=== PATIENT | female | born 1995 | race Two or more races ===

== ENCOUNTER 2017-06-27 09:26 | Emergency (ER) | payer OTHER ==
[~2017-06-27] VITALS: Ht 157.5 cm; Wt 106.0 kg
[~2017-06-27 09:26] MED LIST: ACETAMINOPHEN PO; BACT800T OR; HYDROCODONE PO; PHENAZOPYRIDINE PO; ZITH250T PO; ZOLOFT PO
[2017-06-27] MEDS ORDERED: NAPR500T PO (10:15)
[2017-06-27] MEDS ORDERED: KETOROLAC 30 MG/ML VIAL (J1885) IV ONE (10:15)
[2017-06-27] MEDS ORDERED: VALI5TAB PO (10:16)
[2017-06-27] MEDS ORDERED: KETOROLAC 60 MG/2 ML VIAL (J1885) IM ONE (10:30)
[2017-06-27 11:56] VITALS: BP 142/81
== END 2017-06-27 11:57 | disposition home or self-care (01) ==
LOC: M ED 09:26
DX: M54.5 Low back pain (principal); J45.909 Unspecified asthma, uncomplicated; F41.9 Anxiety disorder, unspecified; F33.9 Major depressive disorder, recurrent, unspecified; Z88.5 Allergy status to narcotic agent; Z88.8 Allergy status to other drugs, medicaments and biological substances; Z87.891 Personal history of nicotine dependence
CPT/HCPCS: 96372; 96374; 99283; J1885; J3360

== ENCOUNTER 2017-09-17 07:33 | Emergency (ER) | payer OTHER | END 2017-09-17 08:40 | disposition home or self-care (01) | LOC: M ED 07:33 | DX: J20.9 Acute bronchitis, unspecified (principal); B34.9 Viral infection, unspecified; R51 Headache; I10 Essential (primary) hypertension; Z79.899 Other long term (current) drug therapy; Z88.5 Allergy status to narcotic agent; Z88.8 Allergy status to other drugs, medicaments and biological substances | CPT/HCPCS: 99282 ==

== ENCOUNTER → 2018-01-03 | Outpatient (REF) | payer OTHER ==
[2018-01-03 12:36] LABS: BASO # 0.1 10^3/uL (0.0-0.2); BASO % 0.8 % (0.0-1.0); EOS # 0.2 10^3/uL (0.0-0.50); EOS % 2.5 % (0.0-3.0); HEMATOCRIT 39.8 % (36.0-47.0); HEMOGLOBIN 12.8 g/dl (12.0-15.5); IMMATURE GRANULOCYTE % 0.3 % (0-3.0); LYMPH # 2.4 10^3/uL (1.5-6.5); LYMPH % 36.9 % (24.0-44.0); MEAN CORPUSCULAR HEMOGLOBIN 25.9 pg (27.0-33.0); MEAN CORPUSCULAR HGB CONC 32.2 g/dl (32.0-36.5); MEAN CORPUSCULAR VOLUME 80.4 fl (80.0-96.0); MONO # 0.5 10^3/uL (0.0-0.8); MONO % 8.5 % (0.0-5.0); NEUTROPHILS # 3.2 10^3/uL (1.8-7.7); PLATELET COUNT, AUTOMATED 358 10^3/uL (150-450); RED BLOOD COUNT 4.95 10^6/uL (4.00-5.40); RED CELL DISTRIBUTION WIDTH 14.5 % (11.5-14.5); WHITE BLOOD COUNT 6.4 10^3/uL (4.0-10.0)
[2018-01-03 13:09] LABS: ALBUMIN/GLOBULIN RATIO 1.18 (1.00-1.93); ALKALINE PHOSPHATASE 72 U/L (45-117); ALT/SGPT 35 U/L (12-78); ANION GAP 10 MEQ/L (8-16); AST/SGOT 13 U/L (7-37); BILIRUBIN,TOTAL 0.3 MG/DL (0.2-1.0); BLOOD UREA NITROGEN 10 MG/DL (7-18); CARBON DIOXIDE LEVEL 22 MEQ/L (21-32); CHLORIDE LEVEL 110 MEQ/L (98-107); CREATININE FOR GFR 0.63 MG/DL (0.55-1.30); GLOMERULAR FILTRATION RATE > 60.0 (>60); GLUCOSE, FASTING 96 MG/DL (70-100); POTASSIUM SERUM 4.4 MEQ/L (3.5-5.1); SODIUM LEVEL 142 MEQ/L (136-145); THYROID STIMULATING HORMONE 0.626 uIU/ML (0.358-3.740); TOTAL PROTEIN 7.4 GM/DL (6.4-8.2)
[2018-01-03 13:21] LABS: HEPATITIS C VIRUS ABY INDEX < 0.0 INDEX (<0.8)
[2018-01-03 13:23] LABS: HIV 1&2 SCREEN CENTAUR NEGATIVE (NEGATIVE)
== END ==
LOC: M SFHCPLAZ 08:16
DX: Z00.00 Encounter for general adult medical examination without abnormal findings (principal); Z11.59 Encounter for screening for other viral diseases; Z11.4 Encounter for screening for human immunodeficiency virus [HIV]
CPT/HCPCS: 84443

== ENCOUNTER → 2018-01-31 | Outpatient (REF) | payer OTHER ==
[2018-01-31 12:07] LABS: CHOLESTEROL LEVEL 202 MG/DL (<200); CHOLESTEROL RISK RATIO 4.926 (<5); HDL CHOLESTEROL 41 MG/DL (>40); NON-HDL-C 161 MG/DL; TRIGLYCERIDES LEVEL 165 MG/DL (<150)
== END ==
LOC: M SFHCPLAZ 08:42
DX: K76.0 Fatty (change of) liver, not elsewhere classified (principal)

== ENCOUNTER → 2018-03-11 | Outpatient (CLI) | payer OTHER ==
[2018-03-11 08:42] LABS: MALB URINE SIEMENS 15.7 MG/L; MAU/CREAT RATIO 8.6 MCG/MG (0.0-30.0)
[2018-03-16 15:09] LABS: ALDOS/RENIN RATIO 21.7 (0.0-30.0); ALDOSTERONE 7.6 ng/dL (0.0-30.0); RENIN ACTIVITY 0.351 ng/mL/hr (0.167-5.380)
== END ==
LOC: M RAD 06:23
DX: I10 Essential (primary) hypertension (principal)
CPT/HCPCS: 76775

== ENCOUNTER → 2018-03-31 | Outpatient (REF) | payer OTHER ==
[2018-03-31 10:55] LABS: BASO # 0.1 10^3/uL (0.0-0.2); BASO % 0.6 % (0.0-1.0); EOS # 0.1 10^3/uL (0.0-0.50); EOS % 0.9 % (0.0-3.0); HEMATOCRIT 35.4 % (36.0-47.0); HEMOGLOBIN 11.3 g/dl (12.0-15.5); IMMATURE GRANULOCYTE % 1.2 % (0-3.0); LYMPH # 4.3 10^3/uL (1.5-6.5); LYMPH % 45.8 % (24.0-44.0); MEAN CORPUSCULAR HEMOGLOBIN 24.9 pg (27.0-33.0); MEAN CORPUSCULAR HGB CONC 31.9 g/dl (32.0-36.5); MONO # 0.9 10^3/uL (0.0-0.8); NEUTROPHILS % 42.5 % (36.0-66.0); PLATELET COUNT, AUTOMATED 339 10^3/uL (150-450); RED BLOOD COUNT 4.54 10^6/uL (4.00-5.40); RED CELL DISTRIBUTION WIDTH 15.3 % (11.5-14.5); WHITE BLOOD COUNT 9.5 10^3/uL (4.0-10.0)
[2018-03-31 11:21] LABS: D-DIMER QUANT 286.7 ng/ml (<500)
[2018-03-31 11:24] LABS: ALBUMIN 3.3 GM/DL (3.2-5.2); ALBUMIN/GLOBULIN RATIO 0.94 (1.00-1.93); ALKALINE PHOSPHATASE 53 U/L (45-117); ALT/SGPT 39 U/L (12-78); ANION GAP 7 MEQ/L (8-16); AST/SGOT 14 U/L (7-37); BILIRUBIN,TOTAL 0.3 MG/DL (0.2-1.0); BLOOD UREA NITROGEN 11 MG/DL (7-18); CALCIUM LEVEL 8.3 MG/DL (8.5-10.1); CARBON DIOXIDE LEVEL 24 MEQ/L (21-32); CHLORIDE LEVEL 114 MEQ/L (98-107); CPK CREATINE PHOSPHOKINASE 34 U/L (26-192); CREATININE FOR GFR 0.64 MG/DL (0.55-1.30); GLOMERULAR FILTRATION RATE > 60.0 (>60); GLUCOSE, FASTING 88 MG/DL (70-100); POTASSIUM SERUM 3.7 MEQ/L (3.5-5.1); SODIUM LEVEL 145 MEQ/L (136-145); TOTAL PROTEIN 6.8 GM/DL (6.4-8.2); TROPONIN I < 0.02 NG/ML (< 0.10)
[2018-03-31 11:25] LABS: CK-MB VALUE MASS < 1.0 NG/ML (<3.6); MB/CK RELATIVE INDEX 2.94 (< OR =4)
== END ==
LOC: M SFHCPLAZ 09:56
DX: R07.9 Chest pain, unspecified (principal)

== ENCOUNTER → 2018-05-26 | Outpatient (REF) | payer OTHER ==
[2018-05-26 18:32] LABS: INR 0.97
[2018-05-26 18:33] LABS: PARTIAL THROMBOPLASTIN TIME 30.3 SECONDS (25.4-37.6)
== END ==
LOC: M SFHCPLAZ 15:00
DX: D50.0 Iron deficiency anemia secondary to blood loss (chronic) (principal)

== ENCOUNTER → 2018-07-18 | Outpatient (CLI) | payer OTHER | LOC: M SLEEP HO 12:16 | DX: R40.0 Somnolence (principal) | CPT/HCPCS: G0399 ==

== ENCOUNTER → 2018-08-06 | Outpatient (REF) | payer OTHER ==
[~2018-08-06] MED LIST changes: +FLON1SPR; +IBUP-1022 PO; +NAPR-49 PO; +PRED20TA PO; +PROAAER10 INH; +PROT1TAB2 PO; +SUCR1TA PO; +VALI5TAB PO; +ZOFR4TAB14 PO
[2018-08-06 12:14] LABS: HEMATOCRIT 38.2 % (36.0-47.0); HEMOGLOBIN 12.5 g/dl (12.0-15.5); MEAN CORPUSCULAR HEMOGLOBIN 27.4 pg (27.0-33.0); MEAN CORPUSCULAR HGB CONC 32.7 g/dl (32.0-36.5); MEAN CORPUSCULAR VOLUME 83.6 fl (80.0-96.0); PLATELET COUNT, AUTOMATED 330 10^3/uL (150-450); RED BLOOD COUNT 4.57 10^6/uL (4.00-5.40); WHITE BLOOD COUNT 7.1 10^3/uL (4.0-10.0)
[2018-08-06 12:44] LABS: PERCENT SATURATION 20.9 % (13.2-45.0)
== END ==
LOC: M SFHCPLAZ 10:31
PROVIDERS: ATTEND Physician Assistant
DX: D50.0 Iron deficiency anemia secondary to blood loss (chronic) (principal)

== ENCOUNTER → 2018-08-30 | Outpatient (CLI) | payer OTHER ==
[~2018-08-30] MED LIST changes: -NAPR-49 PO; +NAPR-50 PO
--- NOTE | 2018-08-30 13:15 | REP ---
MRI brain without contrast: History: Intractable migraine with aura. . Comparison study: May 11, 2013. Technique: Axial and sagittal imaging planes are utilized for T1 and T2-weighted scans. Sequences include spin-echo, fast spin echo, FLAIR, and diffusion weighted sequences. MRI findings: No bony calvarial lesion is seen. Craniocervical junction and upper cervical cord are normal in appearance. There is no MR evidence of significant paranasal sinus disease. No intraorbital abnormality is seen. The lateral, third, and fourth ventricles are normal in size and position. Majano-white differentiation pattern is intact above and below the tentorium. There is no evidence of intracranial hemorrhage. No mass, infarction, extra-axial fluid collection or midline shift is seen. No abnormal white matter lesion is seen. Impression: Negative noncontrast brain MRI study. No change from comparison study in 2012. Electronically Signed by Jeff Viveros MD 08/30/2018 01:07 P
== END ==
LOC: M RAD 11:50
PROVIDERS: ATTEND Physician Assistant
DX: G43.119 Migraine with aura, intractable, without status migrainosus (principal)

== ENCOUNTER → 2018-10-03 | Outpatient (CLI) | payer OTHER ==
--- NOTE | 2018-10-03 17:00 | REP ---
Cervical spine age views: Vertebral body heights, interspacing alignment are normal. The facets are normally aligned. Prevertebral soft tissues are normal. There is no listhesis on flexion or extension. The odontoid view is unremarkable. There is no bony foraminal encroachment. Impression: Negative cervical spine plain film study. Electronically Signed by Saad Garsia MD 10/03/2018 04:52 P
== END ==
LOC: M RAD 16:16
PROVIDERS: ATTEND Physician Assistant
DX: M54.2 Cervicalgia (principal)

== ENCOUNTER → 2018-10-14 | Outpatient (REF) | payer OTHER ==
[2018-10-14 13:01] LABS: BLOOD UREA NITROGEN 16 MG/DL (7-18); CALCIUM LEVEL 9.3 MG/DL (8.5-10.1); CARBON DIOXIDE LEVEL 23 MEQ/L (21-32); CHLORIDE LEVEL 105 MEQ/L (98-107); CREATININE FOR GFR 0.84 MG/DL (0.55-1.30); GLOMERULAR FILTRATION RATE > 60.0 (>60); GLUCOSE, FASTING 95 MG/DL (70-100); POTASSIUM SERUM 3.4 MEQ/L (3.5-5.1); SODIUM LEVEL 138 MEQ/L (136-145)
== END ==
LOC: M SFHCPLAZ 08:56
PROVIDERS: ATTEND Physician Assistant
DX: I10 Essential (primary) hypertension (principal)

== ENCOUNTER → 2018-10-31 | Outpatient (REF) | payer OTHER ==
[2018-10-31 15:54] LABS: C REACTIVE PROTEIN QUANTITATIV < 0.30 MG/DL (0.00-0.30); RHEUMATOID FACTOR QUANT < 10.0 IU/ML (<15.0)
== END ==
LOC: M LABDRAW1 12:21
PROVIDERS: ATTEND Physician Assistant
DX: M54.2 Cervicalgia (principal)

== ENCOUNTER → 2019-02-17 | Outpatient (REF) | payer OTHER ==
[~2019-02-17] MED LIST changes: +CHLO125TA; +CIPR-249 PO; +FERR32TA; +FLAG500T PO; +GABA600T4; -NAPR-50 PO; +NAPR-837 PO; +POTA1TAB23; +ZOFR4TAB16 PO
[2019-02-17 12:07] LABS: HEMATOCRIT 41.3 % (36.0-47.0); HEMOGLOBIN 14.3 g/dl (12.0-15.5); MEAN CORPUSCULAR HEMOGLOBIN 30.2 pg (27.0-33.0); MEAN CORPUSCULAR HGB CONC 34.6 g/dl (32.0-36.5); MEAN CORPUSCULAR VOLUME 87.1 fl (80.0-96.0); PLATELET COUNT, AUTOMATED 323 10^3/uL (150-450); RED BLOOD COUNT 4.74 10^6/uL (4.00-5.40); WHITE BLOOD COUNT 7.2 10^3/uL (4.0-10.0)
[2019-02-17 12:28] LABS: ALBUMIN 4.1 GM/DL (3.2-5.2); ALT/SGPT 191 U/L (12-78); BILIRUBIN,TOTAL 0.6 MG/DL (0.2-1.0); BLOOD UREA NITROGEN 16 MG/DL (7-18); CALCIUM LEVEL 8.9 MG/DL (8.5-10.1); CARBON DIOXIDE LEVEL 24 MEQ/L (21-32); CHLORIDE LEVEL 107 MEQ/L (98-107); CHOLESTEROL LEVEL 238 MG/DL (<200); CHOLESTEROL RISK RATIO 6.432 (<5); CREATININE FOR GFR 0.71 MG/DL (0.55-1.30); FERRITIN 177 NG/ML (8-252); GLOMERULAR FILTRATION RATE > 60.0 (>60); GLUCOSE, FASTING 103 MG/DL (70-100); HDL CHOLESTEROL 37 MG/DL (>40); IRON (FE) 197 UG/DL (50-170); LDL CHOLESTEROL 152 MG/DL (<100); NON-HDL-C 201 MG/DL; PERCENT SATURATION 62.9 % (13.2-45.0); POTASSIUM SERUM 3.5 MEQ/L (3.5-5.1); SODIUM LEVEL 140 MEQ/L (136-145); THYROID STIMULATING HORMONE 0.612 uIU/ML (0.358-3.740); TOTAL IRON BINDING CAPACITY 313 UG/DL (250-450); TOTAL PROTEIN 6.8 GM/DL (6.4-8.2); TRIGLYCERIDES LEVEL 244 MG/DL (<150)
[2019-02-17 13:32] LABS: HEMOGLOBIN A1c 6.2 %
[2019-02-17 13:41] LABS: MAU/CREAT RATIO 8.1 MCG/MG (0.0-30.0)
== END ==
LOC: M SFHCPLAZ 10:04
PROVIDERS: ATTEND Nurse Practitioner Adult Health
DX: Z00.00 Encounter for general adult medical examination without abnormal findings (principal); D50.0 Iron deficiency anemia secondary to blood loss (chronic); E78.5 Hyperlipidemia, unspecified; I10 Essential (primary) hypertension; Z83.3 Family history of diabetes mellitus

== ENCOUNTER 2019-03-31 23:59 | Emergency (ER) | payer OTHER ==
[~2019-03-31] VITALS: Ht 157.5 cm; Wt 114.2 kg
[~2019-03-31 23:59] MED LIST changes: -CHLO125TA; -CIPR-249 PO; -FERR32TA; -FLAG500T PO; -GABA600T4; -POTA1TAB23; -ZOFR4TAB16 PO
[2019-04-01] MEDS ORDERED: FERR32TA (00:07)
[2019-04-01] MEDS ORDERED: POTA1TAB23 (00:07)
[2019-04-01] MEDS ORDERED: CHLO125TA (00:07)
[2019-04-01] MEDS ORDERED: GABA600T4 (00:07)
[2019-04-01] MEDS ORDERED: METOCLOPRAMIDE 10 MG TAB PO ONE (02:15)
[2019-04-01] MEDS ORDERED: IBUPROFEN 600 MG TAB PO ONE (02:15)
[2019-04-01] MEDS ORDERED: NORCO, ANEXSIA 5/325MG TABLET (HYDROcodone/ACETAMINOPHEN) PO ONE (02:15)
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
[2019-04-01] MEDS ORDERED: IBUP-1022 PO (03:09)
[2019-04-01 03:24] VITALS: BP 137/91
== END 2019-04-01 03:26 | disposition home or self-care (01) ==
LOC: M ED 23:59
DX: M25.511 Pain in right shoulder (principal); S00.81XA Abrasion of other part of head, initial encounter; S00.83XA Contusion of other part of head, initial encounter; Y04.8XXA Assault by other bodily force, initial encounter; Y92.018 Other place in single-family (private) house as the place of occurrence of the external cause; I10 Essential (primary) hypertension; Z79.899 Other long term (current) drug therapy; Z88.5 Allergy status to narcotic agent; Z88.8 Allergy status to other drugs, medicaments and biological substances

== ENCOUNTER → 2019-04-30 | Outpatient (CLI) | payer OTHER ==
[~2019-04-30] MED LIST changes: +CHLO125TA; +E-Z-GAS II EFFERVESCENT PACKET (SODIUM BICARB./CITRIC ACID/SIMETHICONE) As Ordered ONE; +E-Z-HD 98% w/w 340GM SUSP BTL As Ordered ONE; +E-Z-PAQUE 96% w/w SUSP 176GM BTL As Ordered ONE; +FERR32TA; +GABA600T4; +POTA1TAB23
--- NOTE | 2019-04-30 11:42 | REP ---
RIGHT UPPER QUADRANT SONOGRAPHY: HISTORY: Right upper quadrant pain. COMPARISON STUDY: October 19, 2015. FINDINGS: Scanning through the right upper quadrant of the abdomen demonstrates a normal sized thin-walled gallbladder with a phrygian cap morphology at the gallbladder fundus. The normal variant. No stone or polyp is seen. Common bile duct is normal measuring 0.5 cm in greatest diameter. Limited views of the pancreas show no abnormality. There is no evidence of ascites or right renal abnormality. The right kidney measures 12.6 x 5.9 x 4.8 cm. The liver is somewhat echogenic diffusely consistent with fatty infiltration. IMPRESSION: No evidence of fatty infiltration of the liver. Otherwise negative right upper quadrant sonography. Electronically Signed by Jeff Viveros MD 04/30/2019 01:01 P
--- NOTE | 2019-04-30 16:46 | REP ---
UPPER GI AIR CONTRAST AND SMALL BOWEL FOLLOW THROUGH The procedure was performed under the direct supervision of Dr. Viveros. The images were reviewed with Dr. Viveros The lead pourer film shows no organomegaly or pathological masses. The intestinal gas pattern is non-specific. Liquid barium and gas producing crystals were given in the erect position as well as liquid barium in the prone oblique position in order to perform a double contrast upper GI examination. Additionally liquid barium was given at the end of the examination in order to perform a small bowel follow through. The oral and pharyngeal stages of deglutition are unremarkable. Esophageal transport is prompt and efficient and there is no esophagitis, stricture, mucosal ring or hiatal hernia. Gastroesophageal reflux is not demonstrated on this examination. The stomach graham are normally outlined . The rugal folds are smooth and regular. There is no gastritis neoplasm or ulcer disease. The duodenal graham are normally outlined . The mucosal folds are smooth and regular. There is no duodenitis pancreatitis peptic ulcer disease or neoplasm. The visualized portion of the proximal small bowel appears normal in course and caliber. The barium column was followed through the small bowel to the level of the terminal ileum. Small bowel transit time is approximately 105 minutes . During fluoroscopy gentle palpation shows all loops are freely movable and pliable. There are no fixed or angulated loops. The small bowel mucosal pattern is normal in course and caliber. There is no transition to suggest a partial small-bowel obstruction. Spot filming of the terminal ileum shows it to be unremarkable. Impression: Essentially unremarkable double contrast upper GI and small bowel follow through examination. 2.6 minutes of fluoro time was utilized for this procedure. Reviewed by MARY Healy 04/30/2019 04:20 P Electronically Signed by Jeff Viveros MD 04/30/2019 04:37 P
== END ==
LOC: M RAD 08:29
PROVIDERS: ATTEND Nurse Practitioner Adult Health
DX: K21.9 Gastro-esophageal reflux disease without esophagitis (principal); R10.11 Right upper quadrant pain

== ENCOUNTER 2019-05-23 08:44 | Emergency (ER) | payer OTHER ==
[~2019-05-23] VITALS: Ht 157.5 cm; Wt 110.6 kg
[~2019-05-23 08:44] MED LIST changes: -E-Z-GAS II EFFERVESCENT PACKET (SODIUM BICARB./CITRIC ACID/SIMETHICONE) As Ordered ONE; -E-Z-HD 98% w/w 340GM SUSP BTL As Ordered ONE; -E-Z-PAQUE 96% w/w SUSP 176GM BTL As Ordered ONE
[2019-05-23] MEDS ORDERED: ONDANSETRON 4MG/2ML VIAL (J2405) IV ONE (09:15)
[2019-05-23] MEDS ORDERED: NS 1,000 ML IV ONE (09:15)
[2019-05-23 10:34] LABS: INFLUENZA A AMPLIFICATION NEGATIVE (NEGATIVE); INFLUENZA B AMPLIFICATION NEGATIVE (NEGATIVE)
[2019-05-23 11:08] LABS: BASO # 0.1 10^3/uL (0.0-0.2); BASO % 0.9 % (0.0-1.0); EOS # 0.1 10^3/uL (0.0-0.5); EOS % 1.2 % (0.0-3.0); HEMATOCRIT 40.4 % (36.0-47.0); HEMOGLOBIN 13.8 g/dl (12.0-15.5); LYMPH # 2.7 10^3/uL (1.5-5.0); LYMPH % 36.3 % (24.0-44.0); MEAN CORPUSCULAR HEMOGLOBIN 29.6 pg (27.0-33.0); MEAN CORPUSCULAR HGB CONC 34.2 g/dl (32.0-36.5); MEAN CORPUSCULAR VOLUME 86.5 fl (80.0-96.0); MONO # 0.7 10^3/uL (0.0-0.8); MONO % 9.4 % (0.0-5.0); NEUTROPHILS # 3.9 10^3/uL (1.5-8.5); NEUTROPHILS % 51.9 % (36.0-66.0); PLATELET COUNT, AUTOMATED 333 10^3/uL (150-450); RED BLOOD COUNT 4.67 10^6/uL (4.00-5.40); WHITE BLOOD COUNT 7.5 10^3/uL (4.0-10.0)
[2019-05-23 11:40] LABS: HCG, SERUM QUALITATIVE NEGATIVE (NEGATIVE)
[2019-05-23 11:43] LABS: ALBUMIN 3.8 GM/DL (3.2-5.2); ALT/SGPT 153 U/L (12-78); BILIRUBIN,DIRECT 0.2 MG/DL (0.0-0.2); BILIRUBIN,TOTAL 0.9 MG/DL (0.2-1.0); BLOOD UREA NITROGEN 10 MG/DL (7-18); CALCIUM LEVEL 8.9 MG/DL (8.5-10.1); CARBON DIOXIDE LEVEL 25 MEQ/L (21-32); CHLORIDE LEVEL 109 MEQ/L (98-107); GLOMERULAR FILTRATION RATE > 60.0 (>60); GLUCOSE, FASTING 94 MG/DL (70-100); LIPASE 57 U/L (73-393); POTASSIUM SERUM 3.9 MEQ/L (3.5-5.1); SODIUM LEVEL 143 MEQ/L (136-145); TOTAL PROTEIN 6.7 GM/DL (6.4-8.2)
[2019-05-23] MEDS ORDERED: ISOVUE-370 76% 100ML VIAL (Q9967) As Ordered ONE (12:09)
[2019-05-23] MEDS ORDERED: CIPR-249 PO (13:40)
[2019-05-23] MEDS ORDERED: ZOFR4TAB16 PO (13:41)
[2019-05-23] MEDS ORDERED: FLAG500T PO (13:41)
[2019-05-23] MEDS ORDERED: CIPROFLOXACIN 500 MG TAB PO ONE (13:45)
[2019-05-23] MEDS ORDERED: metroNIDAZOLE (FLAGYL) 500 MG TAB PO ONE (13:45)
--- NOTE | 2019-05-23 13:54 | REP ---
CT of the abdomen pelvis without IV and oral contrast for left sided abdominal pain: Comparison is 04/26/2014. The visualized lung campbell are unremarkable. The unenhanced hepatic parenchyma is homogeneous and slightly less dense than the spleen compatible with hepato steatosis. The gallbladder, pancreas and spleen are unremarkable. The adrenals, kidneys and abdominal aorta are unremarkable. There is no bowel distension or obstruction. There is wall thickening of the transverse colon and descending colon. This is compatible with colitis in the appropriate clinical setting. There is no diverticulosis or diverticulitis. The mesentery is unremarkable. There is no ascites. Pelvis: The appendix is unremarkable. There is a 2.0 cm right ovarian follicle. Left adnexa is unremarkable. The uterus is unremarkable. There is no ascites or adenopathy. Impression: Hepato steatosis. There are findings compatible with transverse colon and descending colon colitis in the appropriate clinical setting. There is no adenopathy, mass or ascites. Probable 2.0 cm right ovarian follicle. Electronically Signed by Saad Garsia MD 05/23/2019 01:45 P
[2019-05-23 14:02] VITALS: BP 133/77
== END 2019-05-23 14:30 | disposition home or self-care (01) ==
LOC: M ED 08:44
DX: K52.9 Noninfective gastroenteritis and colitis, unspecified (principal); K76.0 Fatty (change of) liver, not elsewhere classified; I10 Essential (primary) hypertension; J45.909 Unspecified asthma, uncomplicated; K21.9 Gastro-esophageal reflux disease without esophagitis; F41.9 Anxiety disorder, unspecified; F33.9 Major depressive disorder, recurrent, unspecified; Z79.899 Other long term (current) drug therapy; Z88.8 Allergy status to other drugs, medicaments and biological substances; Z88.5 Allergy status to narcotic agent
CPT/HCPCS: 74176; 80048; 80076; 81001; 83690; 84703; 85025; 87086; 87502; 96374; 99284; J2405

== ENCOUNTER → 2019-11-05 | Outpatient (REF) | payer OTHER ==
[~2019-11-05] MED LIST changes: +CIPR-249 PO; +FLAG500T PO; +ZOFR4TAB16 PO
== END ==
LOC: M SFHCPLAZ 16:48
PROVIDERS: ATTEND Internal Medicine
DX: R68.89 Other general symptoms and signs (principal)
CPT/HCPCS: 87486; 87581; 87633; 87798; U0002

== ENCOUNTER → 2019-11-05 | Outpatient (CLI) | payer OTHER ==
--- NOTE | 2019-11-05 15:31 | REPPI ---
Chest x-ray: Two views. History: Flu-like symptoms. Comparison chest x-ray March 28, 2018. Findings: The lungs are well inflated and clear. The pleural angles are sharp. Heart size is normal. Pulmonary vasculature is not increased. Impression: Negative chest x-ray. Electronically Signed by Jeff Viveros MD 11/05/2019 03:23 P
== END ==
LOC: M PLAIMG 14:10
PROVIDERS: ATTEND Internal Medicine
DX: R68.89 Other general symptoms and signs (principal)

== ENCOUNTER → 2020-09-21 | Outpatient (CLI) | payer OTHER ==
--- NOTE | 2020-09-21 12:44 | REP ---
INDICATION: EPIGASTRIC PAIN. COMPARISON: Comparison sonography April 30, 2019.. TECHNIQUE: Right upper quadrant sonography. FINDINGS: Scanning through the right upper quadrant of the abdomen demonstrates a normal sized, thin-walled gallbladder without evidence of stone or polyp. Common bile duct is normal measuring 0.5 cm in greatest diameter. No focal liver lesion is seen. Liver size is normal. No pancreatic abnormality is observed. No right renal abnormality is seen. There is no evidence of ascites. The right kidney measures 11.5 x 6.3 x 5.0 cm. IMPRESSION: Negative right upper quadrant sonography. <Electronically signed by Artemio Viveros > 09/21/20 [id number]
== END ==
LOC: M RAD 07:39
PROVIDERS: ATTEND Internal Medicine Gastroenterology
DX: R10.13 Epigastric pain (principal)

== ENCOUNTER → 2020-10-02 | Outpatient (CLI) | payer OTHER ==
[~2020-10-02] MED LIST changes: +ACET-907 PO; +IBUP-1114 PO; +VENTAER INH
== END ==
LOC: M LABSMTC 08:45
PROVIDERS: ATTEND Anesthesiology
DX: Z01.812 Encounter for preprocedural laboratory examination (principal); Z20.822 Contact with and (suspected) exposure to COVID-19

== ENCOUNTER 2020-10-07 10:11 | Day surgery (SDC) | payer OTHER ==
[~2020-10-07] VITALS: Ht 157.5 cm; Wt 113.4 kg
[~2020-10-07 10:11] MED LIST changes: +NS 1,000 ML IV ONE
--- OUTSIDE RECORDS SUMMARY | 2020-10-07 10:14 | CCD | Continuity of Care Document ---
Author Author Darius LOPEZ M.D. Organization Unknown Address [address], [address] [place] [address] Phone [phone] Care Team Providers Care Sas Administrator Name Role Phone John Ortega M.D. AUTM [phone] Faviola Lynn R.N. AUTM [phone] Lory Cordova AUTM [phone] Problems Active Problems Provider Date Essential hypertension Ranjan Lopez M.D. Onset: 08/20 Social History Type Date Description Comments Sex Unknown ETOH Use Denies alcohol use Tobacco Use Start: Unknown Patient has never smoked Allergies, Adverse Reactions, Alerts Description No Known Drug Allergies Medications Active Medications SIG Qnty Indications Ordering Provide r Date Protonix 40mg Tablets DR 1tab po qd Unknown Potassium Chloride ER 10Meq Capsul es ER 1cap po qd Unknown Chlorthalidone 25mg Tablets 1tab po qd Unknown Ferrous Gluconate 324(37.5Fe) mg T ablets 1tab po qd Unknown Carafate 1gm Tablets 1tab po qid Unknown Zofran 4mg Tablets prn Unknown Tylenol Extra Strength 500mg Tablets prn Unknown Topamax 25mg Tablets 1tab po bid Unknown Meloxicam 15mg Tablets 1tab p o qd Unknown Tizanidine HCL 4mg Tablets 1-2tabs po prn Unknown Gabapentin 600mg Tablets 1tab po tid Unknown Multivitamin Tablets 1tab po qd Unknown Immunizations Description No Information Available Vital Signs Date Vital Result Comment 09/13/2020 10:56am BP Systolic 120 mmHg BP Diastolic 68 mmHg Height 62 inches 5'2" Weight 249.00 lb BMI (Body Mass Index) 45.5 kg/m2 [place] Body Weight 110 lb Weight 112.946 kg BSA (Body Surface Area) 2.10 m2 08/21/2018 10:19am BP Systolic 138 mmHg BP Diastolic 88 mmHg Heart Rate 83 /min O2 % BldC Oximetry 98 % Room Air Height 62 inches 5'2" Weight 241.00 lb BMI (Body Mass Index) 44.1 kg/m2 [place] Body Weight 110 lb Weight 109.318 kg BSA (Body Surface Area) 2.07 m2 Procedures Description No Information Available Medical Devices Description No Information Available Encounters Description No Information Available Assessments Date Code Description Provider 09/13/2020 K58.2 Mixed irritable bowel syndrome C kym Lopez M.D. 09/13/2020 R19.7 Diarrhea, unspecified Ranjan Lopez M.D. 09/13/2020 R11.0 Nausea Ranjan Terrell ala, M.D. 09/13/2020 R10.13 Epigastric pain Ranjan Terrell ala, M.D. Plan of Treatment 09/13/2020 - Ranjan Lopez M.D.* K58.2 Mixed irritable bowel syndrome * R19.7 Diarrhea, unspecified * R11.0 Nausea * R10.13 Epigastric pain * * New Labs:* Stool For Polys, Ordered: 09/13/20 * Calprotectin Stool Sendout, Ordered: 09/13/20 * H Pylori Stool Antigen, Ordered: 09/13/20 * Clostridium Difficile PCR, Ordered: 09/13/20 * New Orders:* Colonoscopy, Ordered: 09/13/20 * Comments:* Possible differentials: Functional Status Functional Condition Comment Date Status Independent with all ADL's Activ e Independent with all IADL's Acti ve Mental Status Mental Condition Comment Date Status None Active Can understand information Activ e Referrals Refer to Reason for Referral Status Appt Date Ranjan Lopez M.D. unspecified abdominal pain Created 09/13/[address] [place] [address], [address] [place] [address] [phone]
--- OUTSIDE RECORDS SUMMARY | 2020-10-07 10:14 | CCD ---
Author Author [facility] Organization [facility] Address Unknown Phone Unavailable Care Team Providers Care [employer] Name Role Phone CASPER, ZEINAAM Unavailable Unavailable Alexandrea Spencer Unavailable Unavailable Alexandrea Spencer Unavailable Unavailable Alexandrea Spencer Unavailable Unavailable Alexandrea Spencer PA Unavailable Unavailable Alexandrea Spencer PA Unavailable Unavailable Alexandrea Spencer PA Unavailable Unavailable Alexandrea Spencer PA Unavailable Unavailable Alexandrea Spencer PA Unavailable Unavailable Alexandrea Spencer PA Unavailable Unavailable Alexandrea Spencer PA Unavailable Unavailable Alexandrea Spencer PA Unavailable Unavailable Alexandrea Spencer PA Unavailable Unavailable Spencer, L Renée PA Unavailable Unavailable Spencer, L Renée PA Unavailable Unavailable Spencer, L Renée PA Unavailable Unavailable Spencer, L Renée PA Unavailable Unavailable Spencer, L Renée PA Unavailable Unavailable Spencer, L Renée PA Unavailable Unavailable Spencer, L Renée PA Unavailable Unavailable Spencer, L Renée PA Unavailable Unavailable Spencer, L Renée PA Unavailable Unavailable Spencer, L Renée PA Unavailable Unavailable Spencer, L Renée PA Unavailable Unavailable Spencer, L Renée PA Unavailable Unavailable Spencer, L Renée PA Unavailable Unavailable Spencer, L Renée PA Unavailable Unavailable Spencer, L Renée PA Unavailable Unavailable Spencer, L Renée PA Unavailable Unavailable Spencer, L Renée PA Unavailable Unavailable Spencer, L Renée PA Unavailable Unavailable Spencer, L Renée PA Unavailable Unavailable Spencer, L Renée PA Unavailable Unavailable Spencer, L Renée PA Unavailable Unavailable Spencer, L Renée PA Unavailable Unavailable Spencer, L Renée PA Unavailable Unavailable Spencer, L Renée PA Unavailable Unavailable PARNES Z BEST MD Unavailable Unavailable PARNES, Z BEST MD Unavailable Unavailable PARNES, Z BEST MD Unavailable Unavailable PARNES, Z BEST MD Unavailable Unavailable PARNES, Z BEST MD Unavailable Unavailable PARNES, Z BEST MD Unavailable Unavailable PARNES, Z BEST MD Unavailable Unavailable PARNES, Z BEST MD Unavailable Unavailable PARNES, Z BEST MD Unavailable Unavailable PARNES, Z BEST MD Unavailable Unavailable PARNES, Z BEST MD Unavailable Unavailable PARNES, Z BEST MD Unavailable Unavailable PARNES, Z BEST MD Unavailable Unavailable PARNES, Z BEST MD Unavailable Unavailable PARNES, Z BEST MD Unavailable Unavailable PARNES, Z BEST MD Unavailable Unavailable PARNES, Z BEST MD Unavailable Unavailable PARNES, Z BEST MD Unavailable Unavailable PARNES, Z BEST MD Unavailable Unavailable PARNES, Z BEST MD Unavailable Unavailable PARNES, Z BEST MD Unavailable Unavailable PARNES, Z BEST MD Unavailable Unavailable PARNES, Z BEST MD Unavailable Unavailable PARNES, Z BEST MD Unavailable Unavailable PARNES, Z BEST MD Unavailable Unavailable PARNES, Z BEST MD Unavailable Unavailable PARNES, Z BEST MD Unavailable Unavailable PARNES, Z BEST MD Unavailable Unavailable PARNES, Z BEST MD Unavailable Unavailable PARNES, Z BEST MD Unavailable Unavailable PARNES, Z BEST MD Unavailable Unavailable PARNES, Z BEST MD Unavailable Unavailable PARNES, Z BEST MD Unavailable Unavailable PARNES, Z BEST MD Unavailable Unavailable PARNES, Z BEST MD Unavailable Unavailable PARNES, Z BEST MD Unavailable Unavailable PARNES, Z BEST MD Unavailable Unavailable PARNES, Z BEST MD Unavailable Unavailable ROSSY, M MARISSA PA Unavailable Unavailable ROSSY, M MARISSA PA Unavailable Unavailable ROSSY, M MARISSA PA Unavailable Unavailable ROSSY, M MARISSA PA Unavailable Unavailable ROSSY, M MARISSA PA Unavailable Unavailable ROSSY, M MARISSA PA Unavailable Unavailable ROSSY, M MARISSA PA Unavailable Unavailable ROSSY, M MARISSA PA Unavailable Unavailable ROSSY, M MARISSA PA Unavailable Unavailable ROSSY, M MARISSA PA Unavailable Unavailable ROSSY, M MARISSA PA Unavailable Unavailable ROSSY, M MARISSA PA Unavailable Unavailable ROSSY, M MARISSA PA Unavailable Unavailable ROSSY, M MARISSA PA Unavailable Unavailable ROSSY, M MARISSA PA Unavailable Unavailable ROSSY, M MARISSA PA Unavailable Unavailable ROSSY, M MARISSA PA Unavailable Unavailable ROSSY, M MARISSA PA Unavailable Unavailable ROSSY, M MARISSA PA Unavailable Unavailable ROSSY, M MARISSA PA Unavailable Unavailable ROSSY, M MARISSA PA Unavailable Unavailable ROSSY, M MARISSA PA Unavailable Unavailable ROSSY, M MARISSA PA Unavailable Unavailable ROSSY, M MARISSA PA Unavailable Unavailable Re-disclosure Warning The records that you are about to access may contain information from federally-assisted alcohol or drug abuse programs. If such information is present, then the following federally mandated warning applies: This information has been disclosed to you from records protected by federal confidentiality rules (42 CFR part 2). The federal rules prohibit you from making any further disclosure of this information unless further disclosure is expressly permitted by the written consent of the person to whom it pertains or as otherwise permitted by 42 CFR part 2. A general authorization for the release of medical or other information is NOT sufficient for this purpose. The Federal rules restrict any use of the information to criminally investigate or prosecute any alcohol or drug abuse patient.The records that you are about to access may contain highly sensitive health information, the redisclosure of which is protected by Article 27-F of the [facility] Public Health law. If you continue you may have access to information: Regarding HIV / AIDS; Provided by facilities licensed or operated by the [facility] Office of Mental Health; or Provided by the [facility] Office for People With Developmental Disabilities. If such information is present, then the following [facility] mandated warning applies: This information has been disclosed to you from confidential records which are protected by state law. State law prohibits you from making any further disclosure of this information without the specific written consent of the person to whom it pertains, or as otherwise permitted by law. Any unauthorized further disclosure in violation of state law may result in a fine or intermediate sentence or both. A general authorization for the release of medical or other information is NOT sufficient authorization for further disc losure. Allergies and Adverse Reactions Type Description Substance Reaction Status Data Source(s ) No Known Environmental Allergies No Known Environmental Al lergies [facility] Food allergy dislikes seafood dislikes seafood [facility] Drug allergy TRAMADOL TRAMADOL HIVES ITCHING [facility] Drug allergy CYCLOBENZAPRINE CYCLOBENZAPRINE HIVES [facility] Family History Family Member Name Family Member Gender Family Member Status Date o f Status Description Data Source(s) Unknown Male Problem [facility] ([facility]) Unknown Unknown Problem MEDENT ([facility]) Encounters Encounter Providers Location Date Indications Data Source(s ) Outpatient Attender: BEST PIÑA MD Family Practice 04/13/2020 08 :40:00 AM EDT MEDENT ([facility]) Outpatient Attender: BEST PIÑA MDConsultant: Renée MARIE 04/13/2020 08:39:00 AM EDT - 04/13/2020 08:39:00 AM EDT [facility] Outpatient Attender: ANDRE [facility] 12/23/2019 09:01:00 PM EDT [facility] Outpatient Attender: ANDRE [facility] 12/22/2019 01:14:01 PM EDT [facility] Outpatient Referrer: MARISSA MARIE 12/03/2019 06:03:00 AM EDT [facility] [place] [address], [facility] [address] 11/05/2019 12:00:00 AM EDT eCW1 ([facility]) [facility] Resident [address] [place] [address] 11/05/2019 12:00:00 AM EDT eCW1 ([facility]) [facility] [address] [address] 09/23/2019 12:00:00 AM EST eCW1 ([facility]) [facility] [address] [address] 09/15/2019 12:00:00 AM EST eCW1 ([facility]) [facility] [address] [place] [address], [place] [address] 09/08/2019 12:00:00 AM EST eCW1 ([facility]) [address], [place] [address] 09/06/2019 12:00:00 AM EST eCW1 ([facility]) Medications Medication Brand Name Start Date Product Form Dose Route Admi nistrative Instructions Pharmacy Instructions Status Indications Reaction Description Data Source(s) 20 mg 08/05/2020 12:00:00 AM EST tablet 10 TAKE TWO TABLETS BY MOUTH EVERY MORNING FOR 5 DAYS TAKE TWO TABLETS BY MOUTH EVERY MORNING FOR 5 DAYS [facility] 250 mg 08/05/2020 12:00:00 AM EST tablet 6 TAKE TWO TABLETS BY MOUTH AT ONCE ON THE FIRST DAY THEN TAKE ONE DAILY THEREAFTER TAKE TWO TABLETS BY MOUTH AT ONCE ON THE FIRST DAY THEN TAKE ONE DAILY THEREAFTER SOLD: 08/05/2020 [facility] 10 mg 04/21/2020 12:00:00 AM EDT capsule 16 TAKE ONE CAPSULE BY MOUTH FOUR TIMES A DAY FOR 4 DAYS TAKE ONE CAPSULE BY MOUTH FOUR TIMES A DAY FOR 4 DAYS SOLD: 04/21/2020 [facility] 50 mcg/actuation 11/07/2019 12:00:00 AM EDT spray,suspension 16 SPRAY ONE SPRAY IN EACH NOSTRIL EVERY DAY SPRAY ONE SPRAY IN EACH NOSTRIL EVERY DAY SOLD: 03/02/2020 [facility] Flonase Allergy Relief 50 MCG/ACT Flonase Allergy Relief 50 MCG/ACT 11/07/2019 12:00:00 AM EDT active 1 spray in each nostril eCW1 ([facility]) 10 mEq 11/07/2019 12:00:00 AM EDT tablet extended release 30 TAKE ONE TABLET BY MOUTH EVERY DAY WITH FOOD TAKE ONE TABLET BY MOUTH EVERY DAY WITH FOOD SOLD: 11/07/2019 [facility] 50 mcg/actuation 11/07/2019 12:00:00 AM EDT spray,suspension 16 SPRAY ONE SPRAY IN EACH NOSTRIL EVERY DAY SPRAY ONE SPRAY IN EACH NOSTRIL EVERY DAY SOLD: 11/07/2019 [facility] 10-100 mg/5 mL 11/07/2019 12:00:00 AM EDT liquid 474 TAKE 10 ML EVERY 4 HOURS NEEDED TAKE 10 ML EVERY 4 HOURS NEEDED SOLD: 11/07/2019 [facility] Dextromethorphan Hydrobromide 2 MG/ML / Guaifenesin 20 MG/ML Oral Solution [Robitussin DM] Robitussin Cold Cough+ Chest 10-100 MG/5ML Robitussin Cold Cough+ Chest 10-100 MG/5ML 11/07/2019 12:00:00 AM EDT active 10 ml as needed eCW1 ([facility]) 25 mg 11/07/2019 12:00:00 AM EDT tablet 30 TAKE ONE TABLET BY MOUTH EVERY DAY TAKE ONE TABLET BY MOUTH EVERY DAY SOLD: 11/07/2019 [facility] 15 mg 10/22/2019 12:00:00 AM EST tablet 30 TAKE ONE TABLET BY MOUTH ONCE DAILY WITH FOOD OR MILK TAKE ONE TABLET BY MOUTH ONCE DAILY WITH FOOD OR MILK SOLD: 11/05/2019 [facility] 25 mg 09/18/2019 12:00:00 AM EST tablet 60 TAKE ONE TABLET BY MOUTH TWO TIMES A DAY TAKE ONE TABLET BY MOUTH TWO TIMES A DAY SOLD: 09/26/2019 [facility] 324 mg (38 mg iron) 09/18/2019 12:00:00 AM EST tablet 30 TAKE ONE TABLET BY MOUTH DAILY TAKE ONE TABLET BY MOUTH DAILY SOLD: 09/26/2019 [facility] 30 mg 09/18/2019 12:00:00 AM EST capsule,delayed release (DR/EC) 30 TAKE ONE CAPSULE BY MOUTH AT BEDTIME TAKE ONE CAPSULE BY MOUTH AT BEDTIME SOLD: 09/26/2019 [facility] 40 mg 09/18/2019 12:00:00 AM EST tablet,delayed release (DR/EC) 30 TAKE ONE TABLET BY MOUTH DAILY TAKE ONE TABLET BY MOUTH DAILY SOLD: 09/26/2019 [facility] 25 mg 09/18/2019 12:00:00 AM EST tablet 30 TAKE ONE TABLET BY MOUTH ONCE DAILY TAKE ONE TABLET BY MOUTH ONCE DAILY SOLD: 09/26/2019 [facility] 10 mEq 09/18/2019 12:00:00 AM EST tablet extended release 30 TAKE ONE TABLET BY MOUTH DAILY WITH FOOD TAKE ONE TABLET BY MOUTH DAILY WITH FOOD SOLD: 09/26/2019 [facility] 15 mg 08/28/2019 12:00:00 AM EST tablet 30 TAKE ONE TABLET BY MOUTH ONCE DAILY WITH FOOD OR MILK TAKE ONE TABLET BY MOUTH ONCE DAILY WITH FOOD OR MILK SOLD: 08/30/2019 [facility] 15 mg 08/28/2019 12:00:00 AM EST tablet 30 TAKE ONE TABLET BY MOUTH ONCE DAILY WITH FOOD OR MILK TAKE ONE TABLET BY MOUTH ONCE DAILY WITH FOOD OR MILK SOLD: 09/26/2019 [facility] 875-125 mg 08/14/2019 12:00:00 AM EST tablet 20 TAKE ONE TABLET BY MOUTH TWO TIMES A DAY FOR 10 DAYS TAKE ONE TABLET BY MOUTH TWO TIMES A DAY FOR 10 DAYS SOLD: 08/14/2019 [facility] 4 mg 05/20/2019 12:00:00 AM EDT tablet 90 TAKE ONE TABLET BY MOUTH THREE TIMES A DAY NEEDED TAKE ONE TABLET BY MOUTH THREE TIMES A DAY NEEDED S OLD: 03/02/2020 [facility] 90 mcg/actuation 05/20/2019 12:00:00 AM EDT HFA aerosol inha ler 18 INHALE 2 PUFFS BY MOUTH EVERY 6 HOURS NEEDED INHALE 2 PUFFS BY MOUTH EVERY 6 HOURS NEEDED SOLD: 09/26/2019 [facility] 600 mg 04/01/2019 12:00:00 AM EDT tablet 90 TAKE ONE TABLET BY MOUTH THREE TIMES A DAY TAKE ONE TABLET BY MOUTH THREE TIMES A DAY SOLD: 09/26/2019 [facility] 324 mg (37.5 mg iron) 03/17/2019 12:00:00 AM EDT tablet 3 0 TAKE ONE TABLET BY MOUTH EVERY DAY TAKE ONE TABLET BY MOUTH EVERY DAY SOLD: 08/14/2019 [facility] Insurance Providers Payer name Policy type / Coverage type Policy ID Covered green party ID Covered green party's relationship to arevalo Policy Arevalo Plan Information [facility] COMMUNITY PLAN [facility] [id number] SP [id number] [facility] COMMUNITY PLAN [facility] [id number] SP [id number] [facility] COMMUNTY PLAN [id number] 18 [id number] [facility] [id number] Self [id number] Managed Care - [facility] Community Plan S UNAVAILABLE S UNAVAILABLE Medicaid O UNAVAILABLE S UNAVAILA BLE Medicaid P [id number] S [id number] [facility] O [id number] S [id number] [employer] COMMUNITY PLAN XIX [id number] 18 [id number] ANSI-Medicaid [id number] ANSI-Medicaid [id number] [facility] Federal Service Medigap Part B [id number] [facility] Community Plan Commercial [id number] Self [id number] ANSI-Medicaid [id number] Managed Care - Community [facility] S UNAVAILABLE S UNAVAILABLE [facility] Federal Service Medigap Part B [id number] [facility] Community Plan Commercial [id number] Self [id number] ANSI-Medicaid [id number] [facility] P [id number] P [id number] ANSI-Medicaid [id number] [facility] Federal Service Medigap Part B [id number] [facility] Community Plan Commercial [id number] Self [id number] [facility] Federal Service Medigap Part B [id number] [facility] Community Plan Commercial [id number] Self [id number] ANSI-Medicaid [id number] [facility] COMMUNITY PLAN XIX -RECURRING MC [id number] 18 [id number] [facility] Service Medigap Part B [id number] [facility] Community Plan Commercial [id number] Self [id number] ANSI-Medicaid [id number] ANSI-Medicaid [id number] [facility] Communty Plan Medicaid [id number] Self [id number] ANSI-Medicaid [id number] [facility] [id number] [facility] Community Plan Commercial [id number] Self [id number] [facility] AMERICHOICE XIX -HMO [id number] 18 [id number] ANSI-Medicaid [id number] ANSI-Medicaid [id number] ANSI-Medicaid [id number] ANSI-Medicaid [id number] [facility] COMMUNITY PLAN XIX [id number] 18 [id number] ANSI-Medicaid [id number] ANSI-Medicaid [id number] [facility] Commercial [id number] Self [id number] ANSI-Medicaid [id number] ANSI-Medicaid [id number] ANSI-Medicaid [id number] [facility] Commercial [id number] Self [id number] ANSI-Medicaid [id number] ANSI-Medicaid [id number] [facility] Commercial [id number] Self [id number] ANSI-Medicaid [id number] ANSI-Medicaid [id number] ANSI-Medicaid [id number] ANSI-Medicaid [id number] [employer] COMMUNITY PLAN MCDHMO [id number] SP [id number] UNHC COMMUNITY PLAN MCDHMO [id number] SP [id number] Unhc Community Plan Medicaid Self UNHC COMMUNITY PLAN [id number] 18 [id number] UNHC AMERICHOICE HMO [id number] 18 [id number] AMERICHOICE UNHC XIX HMO -I/P [id number] 18 [id number] MEDICAID [id number] SP [id number] [place] [id number] MEDICAID M [id number] Self [id number] [place] [id number] MEDICAID P [id number] S [id number] [place] P [id number] S [id number] [place] [id number] SP [id number] U [id number] GrPt [id number] D O [id number] O [id number] D O [id number] O [id number] Medicaid Dental S [id number] Problems, Conditions, and Diagnoses Code Display Name Description Problem Type Effective Dates Data Source(s) 65365223 Essential hypertension Essential hypertension Problem 09/13/2020 12:00:00 AM EST MEDENT ([facility], ) M7551 Bursitis of right shoulder Bursitis of right shoulder Diagnosis 04/13/2020 08:39:00 AM EDT [facility] Surgeries/Procedures Procedure Description Date Indications Data Source(s) Influenza A+B 11/05/2019 12:00:00 AM EDT eCW1 ([facility]) Results ID Date Data Source [id number] 10/02/2020 09:30:00 AM EST [facility] Name Value Range Interpretation Code Description Data Tosha rce(s) Supporting Document(s) SARS coronavirus 2 RNA Not Detected [facility] [place] This lab was ordered by [facility] and reported by [facility]. ID Date Data Source [id number] 08/05/2020 12:00:00 AM EST [facility] Name Value Range Interpretation Code Description Data Tosha rce(s) Supporting Document(s) SARS coronavirus 2 RNA [Presence] in Res piratory specimen by TERESA with probe detection [facility] This lab was ordered by [facility] and reported by [facility]. ID Date Data Source [id number] 11/05/2019 01:59:00 PM EDT [facility] Name Value Range Interpretation Code Description Data Tosha rce(s) Supporting Document(s) SARS CORONAVIRUS 2 RNA [facility] This lab was ordered by [facility] and reported by [facility]. ID Date Data Source RESPIRATORY PANEL 11/05/2019 12:00:00 AM EDT eCW1 ([facility]) Name Value Range Interpretation Code Description Data Tosha rce(s) Supporting Document(s) This respiratory PCR panel detects Influenza A H1, H3 and RESPIRATORY PANEL eCW1 ([facility]) Procedure Vital Signs ID Date Data Source UNK Name Value Range Interpretation Code Description Data Source(s) Body surface area Derived from formula 2.10 m2 2.10 m2 [facility] ([facility]) Body weight 112.946 kg 112.946 kg [facility] ([facility]) [place] body weight 110 [lb_av] 110 [lb_av] [facility] Body mass index (BMI) [Ratio] 45.5 kg/m2 45.5 k g/m2 [facility] ([facility]) Body weight 249.00 [lb_av] 249.00 [lb_av] [facility] Body height 62 [in_i] 62 [in_i] [facility] ([facility]) 5'2" Diastolic blood pressure 68 mm[Hg] 68 mm[Hg] [facility] ([facility]) Systolic blood pressure 120 mm[Hg] 120 mm[Hg] [facility] Diastolic blood pressure 78 mm[Hg] 78 mm[Hg] eCW1 ([facility]) Systolic blood pressure 126 mm[Hg] 126 mm[Hg] e CW1 ([facility]) Body temperature 98.5 [degF] 98.5 [degF] eCW1 ( [facility]) Respiratory rate 20 /min 20 /min eCW1 ([facility] access hospital) Heart rate /min eCW1 ([facility]) Body mass index (BMI) [Ratio] 43.16 kg/m2 43.16 kg/m2 eCW1 ([facility]) Body height 62 [in_us] 62 [in_us] eCW1 ([facility]) Body weight Measured 236 [lb_av] 236 [lb_av] eC W1 ([facility]) Patient Treatment Plan of Care Planned Activity Planned Date Details Description Data Source (s) Dextromethorphan Hydrobromide 2 MG/ML / Guaifenesin 20 MG/ML Oral Solution [Robitussin DM] 11/07/2019 12:00:00 AM EDT eCW1 ([facility]) Flonase Allergy Relief 50 MCG/ACT 11/07/2019 12:00:00 AM EDT eCW1 ([facility])
[2020-10-07] MEDS ORDERED: LIDOCAINE 2% 100MG/5ML SDV (FOR ANES.) As Ordered ONE (10:23)
[2020-10-07] MEDS ORDERED: propofoL 200 MG/20 ML VIAL As Ordered ONE ×2 (10:23→12:55)
[2020-10-07] MEDS ORDERED: fentaNYL 100 MCG/2 ML INJECTION (J3010) As Ordered ONE (10:24)
--- NOTE | 2020-10-07 13:14 | ROOR ---
Patient Name: Darius Desir Procedure Date: 10/07/2020 12:29 PM Date of : 1995 Age: 25 Room: [facility] Gender: Female Note Status: Finalized Procedure: Upper GI endoscopy Indications: Dyspepsia, Nausea Providers: Ranjan Mares MD Referring MD: Faviola Lynn NP Requesting Provider: Medicines: Monitored Anesthesia Care Complications: No immediate complications. Procedure: Pre-Anesthesia Assessment: - Prior to the procedure, a History and Physical was performed, and patient medications and allergies were reviewed. The patient is competent. The risks and benefits of the procedure and the sedation options and risks were discussed with the patient. All questions were answered and informed consent was obtained. Patient identification and proposed procedure were verified by the physician, the nurse and the anesthesiologist in the procedure room. Mental Status Examination: alert and oriented. Airway Examination: normal oropharyngeal airway and neck mobility. Respiratory Examination: clear to auscultation. CV Examination: normal. Prophylactic Antibiotics: The patient does not require prophylactic antibiotics. Prior Anticoagulants: The patient has taken no previous anticoagulant or antiplatelet agents. ASA Grade Assessment: III - A patient with severe systemic disease. After reviewing the risks and benefits, the patient was deemed in satisfactory condition to undergo the procedure. The anesthesia plan was to use monitored anesthesia care (MAC). Immediately prior to administration of medications, the patient was re-assessed for adequacy to receive sedatives. The heart rate, respiratory rate, oxygen saturations, blood pressure, adequacy of pulmonary ventilation, and response to care were monitored throughout the procedure. The physical status of the patient was re-assessed after the procedure. The Endoscope was introduced through the mouth, and advanced to the second part of duodenum. The upper GI endoscopy was accomplished without difficulty. The patient tolerated the procedure well. Findings: The examined esophagus was normal. The Z-line was regular and was found at the gastroesophageal junction. Scattered moderate inflammation characterized by erythema, friability and granularity was found in the gastric body and in the gastric antrum. Biopsies were taken with a cold forceps for Helicobacter pylori testing. Verification of patient identification for the specimen was done by the physician and nurse using the patient's name, date and medical record number. Estimated blood loss was minimal. The duodenal bulb and second portion of the duodenum were normal. Biopsies for histology were taken with a cold forceps for evaluation of celiac disease. Impression: - Normal esophagus. - Z-line regular, at the gastroesophageal junction. - Gastritis. Biopsied. - Normal duodenal bulb and second portion of the duodenum. Biopsied. Recommendation: - Patient has a contact number available for emergencies. The signs and symptoms of potential delayed complications were discussed with the patient. Return to normal activities tomorrow. Written discharge instructions were provided to the patient. - High fiber diet. - Continue present medications. - Await pathology results. - Follow an antireflux regimen. - Telephone GI clinic for pathology results in 2 weeks. - Return to primary care physician. Procedure Code(s): --- Professional --- 31381, Esophagogastroduodenoscopy, flexible, transoral; with biopsy, single or multiple Diagnosis Code(s): --- Professional --- K29.70, Gastritis, unspecified, without bleeding R10.13, Epigastric pain R11.0, Nausea CPT copyright 2019 [employer]. All rights reserved. The codes documented in this report are preliminary and upon cso review may be revised to meet current compliance requirements. Ranjan Mares MD Ranjan Mares MD 10/07/2020 1:13:44 PM Electronically signed by Ranjan Mares MD Number of Addenda: 0 Note Initiated On: 10/07/2020 12:29 PM Estimated Blood Loss: Estimated blood loss was minimal.
--- NOTE | 2020-10-07 13:22 | ROOR ---
Patient Name: Darius Desir Procedure Date: 10/07/2020 12:30 PM Date of : 1995 Age: 25 Room: [facility] Gender: Female Note Status: Finalized Procedure: Colonoscopy Indications: Chronic diarrhea Providers: Ranjan Mares MD Referring MD: Faviola Lynn NP Requesting Provider: Medicines: Monitored Anesthesia Care Complications: No immediate complications. Procedure: Pre-Anesthesia Assessment: - Prior to the procedure, a History and Physical was performed, and patient medications and allergies were reviewed. The patient is competent. The risks and benefits of the procedure and the sedation options and risks were discussed with the patient. All questions were answered and informed consent was obtained. Patient identification and proposed procedure were verified by the physician, the nurse and the anesthesiologist in the procedure room. Mental Status Examination: alert and oriented. Airway Examination: normal oropharyngeal airway and neck mobility. Respiratory Examination: clear to auscultation. CV Examination: normal. Prophylactic Antibiotics: The patient does not require prophylactic antibiotics. Prior Anticoagulants: The patient has taken no previous anticoagulant or antiplatelet agents. ASA Grade Assessment: II - A patient with mild systemic disease. After reviewing the risks and benefits, the patient was deemed in satisfactory condition to undergo the procedure. The anesthesia plan was to use monitored anesthesia care (MAC). Immediately prior to administration of medications, the patient was re-assessed for adequacy to receive sedatives. The heart rate, respiratory rate, oxygen saturations, blood pressure, adequacy of pulmonary ventilation, and response to care were monitored throughout the procedure. The physical status of the patient was re-assessed after the procedure. The Colonoscope was introduced through the anus and advanced to the terminal ileum, with identification of the appendiceal orifice and IC valve. The colonoscopy was performed without difficulty. The patient tolerated the procedure well. The quality of the bowel preparation was good. The terminal ileum, ileocecal valve, appendiceal orifice, and rectum were photographed. Scope insertion time was 2 minutes. Scope withdrawal time was 9 minutes. The total duration of the procedure was 12 minutes. Findings: The perianal and digital rectal examinations were normal. The terminal ileum appeared normal. A 6 mm polyp was found in the sigmoid colon. The polyp was sessile. The polyp was removed with a cold biopsy forceps. Resection and retrieval were complete. Verification of patient identification for the specimen was done by the physician and nurse using the patient's name, date and medical record number. Estimated blood loss was minimal. Non-bleeding external and internal hemorrhoids were found during retroflexion. The hemorrhoids were medium-sized. Normal mucosa was found in the entire colon. Biopsies for histology were taken with a cold forceps from the right colon, left colon and rectosigmoid colon for evaluation of microscopic colitis. Impression: - The examined portion of the ileum was normal. - One 6 mm polyp in the sigmoid colon, removed with a cold biopsy forceps. Resected and retrieved. - Non-bleeding external and internal hemorrhoids. - Normal mucosa in the entire examined colon. Biopsied. Recommendation: - Patient has a contact number available for emergencies. The signs and symptoms of potential delayed complications were discussed with the patient. Return to normal activities tomorrow. Written discharge instructions were provided to the patient. - High fiber diet. - Continue present medications. - Await pathology results. - Use fiber, for example Citrucel, Fibercon, Konsyl or Metamucil. - Repeat colonoscopy in 5-10 years for surveillance based on pathology results. - Telephone GI clinic for pathology results in 2 weeks. - Return to primary care physician. Procedure Code(s): --- Professional --- 73203, Colonoscopy, flexible; with biopsy, single or multiple Diagnosis Code(s): --- Professional --- K64.8, Other hemorrhoids K63.5, Polyp of colon K52.9, Noninfective gastroenteritis and colitis, unspecified CPT copyright 2019 [employer]. All rights reserved. The codes documented in this report are preliminary and upon relief manager review may be revised to meet current compliance requirements. Ranjan Mares MD Ranjan Mares MD 10/07/2020 1:22:06 PM Electronically signed by Ranjan Mares MD Number of Addenda: 0 Note Initiated On: 10/07/2020 12:30 PM Estimated Blood Loss: Estimated blood loss was minimal.
[2020-10-07 13:54] VITALS: BP 161/81
== END 2020-10-07 13:58 | disposition home or self-care (01) ==
LOC: M OPP 10:11
PROVIDERS: ATTEND Internal Medicine Gastroenterology
DX: K52.9 Noninfective gastroenteritis and colitis, unspecified (principal); R10.13 Epigastric pain; R11.0 Nausea; D13.6 Benign neoplasm of pancreas; K64.8 Other hemorrhoids; D13.1 Benign neoplasm of stomach; D13.39 Benign neoplasm of other parts of small intestine; K29.70 Gastritis, unspecified, without bleeding; I10 Essential (primary) hypertension; F41.9 Anxiety disorder, unspecified; F32.9 Major depressive disorder, single episode, unspecified; G43.909 Migraine, unspecified, not intractable, without status migrainosus; J45.909 Unspecified asthma, uncomplicated; K76.0 Fatty (change of) liver, not elsewhere classified; Z88.5 Allergy status to narcotic agent; Z88.8 Allergy status to other drugs, medicaments and biological substances; Z79.899 Other long term (current) drug therapy; Z83.3 Family history of diabetes mellitus; Z80.8 Family history of malignant neoplasm of other organs or systems
CPT/HCPCS: 43239; 45380; 88305; J3010

== ENCOUNTER → 2021-02-10 | Outpatient (CLI) | payer OTHER ==
[~2021-02-10] MED LIST changes: -NS 1,000 ML IV ONE
[2021-02-10 12:16] LABS: ALBUMIN 3.9 GM/DL (3.2-5.2); ALT/SGPT 38 U/L (12-78); BILIRUBIN,DIRECT 0.1 MG/DL (0.0-0.2); BILIRUBIN,TOTAL 0.7 MG/DL (0.2-1.0); BLOOD UREA NITROGEN 7 MG/DL (7-18); CREATININE FOR GFR 0.52 MG/DL (0.55-1.30); FERRITIN 84 NG/ML (8-252); GLOMERULAR FILTRATION RATE > 60.0 (>60); IRON (FE) 73 UG/DL (50-170); PERCENT SATURATION 25.4 % (13.2-45.0); TOTAL IRON BINDING CAPACITY 287 UG/DL (250-450); TOTAL PROTEIN 6.7 GM/DL (6.4-8.2)
== END ==
LOC: M LAB 10:23
PROVIDERS: ATTEND Internal Medicine Gastroenterology
DX: K76.0 Fatty (change of) liver, not elsewhere classified (principal)

== ENCOUNTER → 2022-12-12 | Outpatient (CLI) | payer OTHER ==
[2022-12-12 15:44] LABS: BASO # 0.1 10^3/uL (0.0-0.2); BASO % 0.8 % (0.0-1.0); EOS # 0.1 10^3/uL (0.0-0.5); EOS % 1.5 % (0.0-3.0); HEMATOCRIT 41.7 % (36.0-47.0); LYMPH # 3.4 10^3/uL (1.5-5.0); LYMPH % 38.5 % (24.0-44.0); MEAN CORPUSCULAR HEMOGLOBIN 28.4 pg (27.0-33.0); MEAN CORPUSCULAR HGB CONC 33.6 g/dl (32.0-36.5); MEAN CORPUSCULAR VOLUME 84.6 fl (80.0-96.0); MONO # 0.6 10^3/uL (0.0-0.8); NEUTROPHILS # 4.5 10^3/uL (1.5-8.5); NEUTROPHILS % 51.9 % (36.0-66.0); PLATELET COUNT, AUTOMATED 289 10^3/uL (150-450); RED BLOOD COUNT 4.93 10^6/uL (4.00-5.40); WHITE BLOOD COUNT 8.7 10^3/uL (4.0-10.0)
[2022-12-12 16:14] LABS: ALBUMIN 4.1 G/DL (3.2-5.2); ALKALINE PHOSPHATASE 62 U/L (46-116); ALT/SGPT 20 U/L (7.0-40); AST/SGOT 12 U/L (<34); BILIRUBIN,TOTAL 0.9 MG/DL (0.3-1.2); BLOOD UREA NITROGEN 9 MG/DL (9-23); CALCIUM LEVEL 9.4 MG/DL (8.5-10.1); CARBON DIOXIDE LEVEL 25 MMOL/L (20-31); CHLORIDE LEVEL 107 MMOL/L (98-107); CHOLESTEROL LEVEL 223 MG/DL (<200); CHOLESTEROL RISK RATIO 6.24 (<5); CREATININE FOR GFR 0.63 MG/DL (0.55-1.30); GLOMERULAR FILTRATION RATE > 60.0 (>60); GLUCOSE, FASTING 81 MG/DL (60-100); HDL CHOLESTEROL 35.7 MG/DL (>40); LDL CHOLESTEROL 148.7 MG/DL (<100); NON-HDL-C 187.3 MG/DL; POTASSIUM SERUM 3.9 MMOL/L (3.5-5.1); SODIUM LEVEL 140 MMOL/L (136-145); TRIGLYCERIDES LEVEL 193 MG/DL (<150)
[2022-12-12 16:15] LABS: THYROID STIMULATING HORMONE 0.383 uIU/ML (0.55-4.78)
[2022-12-12 16:53] LABS: HEMOGLOBIN A1c 5.5 % (4.0-6.0)
== END ==
LOC: M PLALAB 13:50
PROVIDERS: ATTEND Physician Assistant
DX: I10 Essential (primary) hypertension (principal); G43.009 Migraine without aura, not intractable, without status migrainosus; E66.09 Other obesity due to excess calories

== ENCOUNTER → 2023-06-25 | Outpatient (REF) | LOC: M PLAIMG 09:30 | PROVIDERS: ATTEND Internal Medicine | DX: R52 Pain, unspecified (principal) ==

== ENCOUNTER → 2023-08-22 | Outpatient (CLI) | payer OTHER ==
[2023-08-22 14:13] LABS: HEMATOCRIT 44.3 % (36.0-47.0); HEMOGLOBIN 14.8 g/dl (12.0-15.5); MEAN CORPUSCULAR HEMOGLOBIN 28.6 pg (27.0-33.0); MEAN CORPUSCULAR HGB CONC 33.4 g/dl (32.0-36.5); MEAN CORPUSCULAR VOLUME 85.7 fl (80.0-96.0); PLATELET COUNT, AUTOMATED 334 10^3/uL (150-450); RED BLOOD COUNT 5.17 10^6/uL (4.00-5.40)
[2023-08-22 14:17] LABS: ALBUMIN 4.4 G/DL (3.2-5.2); ALKALINE PHOSPHATASE 49 U/L (46-116); ALT/SGPT 31 U/L (7.0-40); AST/SGOT 11 U/L (<34); BILIRUBIN,TOTAL 0.9 MG/DL (0.3-1.2); BLOOD UREA NITROGEN 18 MG/DL (9-23); CALCIUM LEVEL 9.2 MG/DL (8.5-10.1); CARBON DIOXIDE LEVEL 26 MMOL/L (20-31); CHLORIDE LEVEL 105 MMOL/L (98-107); CHOLESTEROL LEVEL 257 MG/DL (<200); CHOLESTEROL RISK RATIO 6.31 (<5); CREATININE FOR GFR 0.88 MG/DL (0.55-1.30); GLOMERULAR FILTRATION RATE > 60.0 (>60); GLUCOSE, FASTING 89 MG/DL (60-100); HDL CHOLESTEROL 40.7 MG/DL (>40); LDL CHOLESTEROL 174.3 MG/DL (<100); NON-HDL-C 216.3 MG/DL; POTASSIUM SERUM 3.5 MMOL/L (3.5-5.1); SODIUM LEVEL 139 MMOL/L (136-145); TOTAL PROTEIN 7.1 G/DL (5.7-8.2); TRIGLYCERIDES LEVEL 210 MG/DL (<150)
[2023-08-22 14:19] LABS: FREE T4 1.28 NG/DL (0.89-1.76); THYROID STIMULATING HORMONE 1.161 uIU/ML (0.55-4.78)
== END ==
LOC: M PLALAB 10:32
PROVIDERS: ATTEND Nurse Practitioner Adult Health
DX: E78.5 Hyperlipidemia, unspecified (principal); I10 Essential (primary) hypertension; G43.909 Migraine, unspecified, not intractable, without status migrainosus; E66.09 Other obesity due to excess calories

== ENCOUNTER → 2023-10-02 | Outpatient (CLI) | payer OTHER | LOC: M RAD 08:24 | PROVIDERS: ATTEND Surgery | DX: R10.11 Right upper quadrant pain (principal); E66.01 Morbid (severe) obesity due to excess calories ==

== ENCOUNTER 2023-11-12 09:18 | Day surgery (SDC) | payer OTHER ==
[~2023-11-12] VITALS: Ht 157.5 cm; Wt 111.6 kg
[~2023-11-12 09:18] MED LIST changes: +AMLO1TAB24 PO; +CHLO125TA PO; +ERGO500029 PO; +FLUTISP; +IRBE300T25 PO; +KAPS25CA PO; +TOPI100T9 PO
[2023-11-12] MEDS: NS 1,000 ML IV ONE (11:00)
[2023-11-12] MEDS ORDERED: propofoL 200 MG/20 ML VIAL As Ordered ONE (11:36)
[2023-11-12] MEDS ORDERED: LIDOCAINE 2% INJ 100 MG/5 ML SYRINGE As Ordered ONE (11:36)
[2023-11-12] MEDS ORDERED: fentaNYL 100 MCG/2 ML INJECTION As Ordered ONE (11:37)
[2023-11-12] MEDS ORDERED: GLYCOPYRROLATE INJ 0.2 MG/ML 2 ML VIAL As Ordered ONE (11:38)
[2023-11-12] MEDS ORDERED: MIDAZOLAM INJ 2MG/2ML VIAL As Ordered ONE (11:52)
[2023-11-12 12:45] VITALS: BP 137/88; TEMP 97.3; O2SAT 98
== END 2023-11-12 13:00 | disposition home or self-care (01) ==
LOC: M OPP 09:18
PROVIDERS: ATTEND Internal Medicine Gastroenterology
DX: Z01.818 Encounter for other preprocedural examination (principal); E66.01 Morbid (severe) obesity due to excess calories; K31.89 Other diseases of stomach and duodenum; Z79.1 Long term (current) use of non-steroidal anti-inflammatories (NSAID); Z79.51 Long term (current) use of inhaled steroids; Z79.899 Other long term (current) drug therapy; Z88.5 Allergy status to narcotic agent; Z88.8 Allergy status to other drugs, medicaments and biological substances
CPT/HCPCS: 43239; 88305; J2250; J3010

== ENCOUNTER → 2023-11-22 | Outpatient (CLI) | payer OTHER ==
[2023-11-22 12:28] LABS: BLOOD UREA NITROGEN 14 MG/DL (9-23); CALCIUM LEVEL 9.5 MG/DL (8.5-10.1); CARBON DIOXIDE LEVEL 26 MMOL/L (20-31); CHLORIDE LEVEL 106 MMOL/L (98-107); CREATININE FOR GFR 0.81 MG/DL (0.55-1.30); GLOMERULAR FILTRATION RATE > 60.0 (>60); GLUCOSE, FASTING 124 MG/DL (60-100); POTASSIUM SERUM 3.2 MMOL/L (3.5-5.1); SODIUM LEVEL 141 MMOL/L (136-145)
== END ==
LOC: M RAD 11:16
PROVIDERS: ATTEND Physician Assistant Surgical
DX: M25.311 Other instability, right shoulder (principal); R93.7 Abnormal findings on diagnostic imaging of other parts of musculoskeletal system

== ENCOUNTER → 2023-12-17 | Outpatient (CLI) | payer OTHER ==
[~2023-12-17] MED LIST changes: +ISOVUE-300 61% 100ML VIAL As Ordered ONE; +LIDOCAINE 1% MDV 20ML VIAL As Ordered ONE; +PROHANCE 279.3MG/ML 5ML VIAL As Ordered ONE
== END ==
LOC: M RAD 08:12
PROVIDERS: ATTEND Physician Assistant Surgical
DX: M25.311 Other instability, right shoulder (principal); S43.431A Superior glenoid labrum lesion of right shoulder, initial encounter; X58.XXXA Exposure to other specified factors, initial encounter; Y92.9 Unspecified place or not applicable
CPT/HCPCS: 23350; 73223; 77002; A9576; Q9967

== ENCOUNTER → 2024-02-13 | Outpatient (CLI) | payer OTHER ==
[~2024-02-13] MED LIST changes: -ISOVUE-300 61% 100ML VIAL As Ordered ONE; -LIDOCAINE 1% MDV 20ML VIAL As Ordered ONE; -PROHANCE 279.3MG/ML 5ML VIAL As Ordered ONE
== END ==
LOC: M PLALAB 12:02
PROVIDERS: ATTEND Family Medicine
DX: Z53.9 Procedure and treatment not carried out, unspecified reason (principal)

== ENCOUNTER → 2024-02-14 | Outpatient (CLI) | payer OTHER ==
[2024-02-14 12:23] LABS: BASO # 0.1 10^3/uL (0.0-0.2); BASO % 0.8 % (0.0-1.0); EOS # 0.1 10^3/uL (0.0-0.5); EOS % 1.3 % (0.0-3.0); HEMATOCRIT 38.4 % (36.0-47.0); HEMOGLOBIN 13.1 g/dl (12.0-15.5); LYMPH # 3.6 10^3/uL (1.5-5.0); LYMPH % 41.3 % (24.0-44.0); MEAN CORPUSCULAR HEMOGLOBIN 28.7 pg (27.0-33.0); MEAN CORPUSCULAR HGB CONC 34.1 g/dl (32.0-36.5); MEAN CORPUSCULAR VOLUME 84.2 fl (80.0-96.0); MONO # 0.7 10^3/uL (0.0-0.8); MONO % 7.5 % (2.0-8.0); NEUTROPHILS # 4.3 10^3/uL (1.5-8.5); NEUTROPHILS % 48.8 % (36.0-66.0); PLATELET COUNT, AUTOMATED 336 10^3/uL (150-450); RED BLOOD COUNT 4.56 10^6/uL (4.00-5.40); WHITE BLOOD COUNT 8.7 10^3/uL (4.0-10.0)
[2024-02-14 12:51] LABS: ALKALINE PHOSPHATASE 48 U/L (46-116); ALT/SGPT 22 U/L (7.0-40); AST/SGOT < 8 U/L (<34); BILIRUBIN,TOTAL 0.6 MG/DL (0.3-1.2); BLOOD UREA NITROGEN 15 MG/DL (9-23); CALCIUM LEVEL 9.5 MG/DL (8.5-10.1); CARBON DIOXIDE LEVEL 24 MMOL/L (20-31); CHLORIDE LEVEL 109 MMOL/L (98-107); CREATININE FOR GFR 0.84 MG/DL (0.55-1.30); GLOMERULAR FILTRATION RATE > 60.0 (>60); GLUCOSE, FASTING 107 MG/DL (60-100); MAGNESIUM LEVEL 1.8 MG/DL (1.8-2.4); POTASSIUM SERUM 3.6 MMOL/L (3.5-5.1); SODIUM LEVEL 142 MMOL/L (136-145); TOTAL PROTEIN 6.8 G/DL (5.7-8.2)
[2024-02-14 12:53] LABS: FERRITIN 55.2 NG/ML (7.3-270.7); VITAMIN B12 LEVEL 805 PG/ML (211-911)
== END ==
LOC: M LAB 11:19
PROVIDERS: ATTEND Family Medicine
DX: I10 Essential (primary) hypertension (principal)

== ENCOUNTER → 2024-04-27 | Outpatient (CLI) | payer OTHER ==
[~2024-04-27] MED LIST changes: +GABA-1490; -GABA600T4
[2024-04-27 14:33] LABS: BASO # 0.1 10^3/uL (0.0-0.2); BASO % 0.8 % (0.0-1.0); EOS # 0.1 10^3/uL (0.0-0.5); EOS % 1.8 % (0.0-3.0); HEMATOCRIT 35.9 % (36.0-47.0); HEMOGLOBIN 11.9 g/dl (12.0-15.5); LYMPH # 2.8 10^3/uL (1.5-5.0); LYMPH % 36.1 % (24.0-44.0); MEAN CORPUSCULAR HEMOGLOBIN 28.6 pg (27.0-33.0); MEAN CORPUSCULAR HGB CONC 33.1 g/dl (32.0-36.5); MEAN CORPUSCULAR VOLUME 86.3 fl (80.0-96.0); MONO # 0.5 10^3/uL (0.0-0.8); MONO % 6.6 % (2.0-8.0); NEUTROPHILS # 4.3 10^3/uL (1.5-8.5); NEUTROPHILS % 54.4 % (36.0-66.0); PLATELET COUNT, AUTOMATED 326 10^3/uL (150-450); RED BLOOD COUNT 4.16 10^6/uL (4.00-5.40); WHITE BLOOD COUNT 7.9 10^3/uL (4.0-10.0)
[2024-04-27 14:39] LABS: ALKALINE PHOSPHATASE 46 U/L (46-116); ALT/SGPT 13 U/L (7.0-40); AST/SGOT < 8 U/L (<34); BILIRUBIN,TOTAL 0.7 MG/DL (0.3-1.2); BLOOD UREA NITROGEN 10 MG/DL (9-23); CALCIUM LEVEL 9.3 MG/DL (8.5-10.1); CARBON DIOXIDE LEVEL 25 MMOL/L (20-31); CHLORIDE LEVEL 110 MMOL/L (98-107); CHOLESTEROL LEVEL 211 MG/DL (<200); CHOLESTEROL RISK RATIO 7.15 (<5); CREATININE FOR GFR 0.75 MG/DL (0.55-1.30); FERRITIN 84.3 NG/ML (7.3-270.7); GLOMERULAR FILTRATION RATE > 60.0 (>60); GLUCOSE, FASTING 94 MG/DL (60-100); HDL CHOLESTEROL 29.5 MG/DL (>40); IRON (FE) 54 UG/DL (50-170); LDL CHOLESTEROL 144.1 MG/DL (<100); NON-HDL-C 181.5 MG/DL; PERCENT SATURATION 20.9 % (13.2-45.0); POTASSIUM SERUM 3.6 MMOL/L (3.5-5.1); SODIUM LEVEL 142 MMOL/L (136-145); THYROID STIMULATING HORMONE 0.662 uIU/ML (0.55-4.78); TOTAL IRON BINDING CAPACITY 258 UG/DL (250-425); TOTAL PROTEIN 6.4 G/DL (5.7-8.2); TRIGLYCERIDES LEVEL 187 MG/DL (<150)
[2024-04-27 14:40] LABS: FREE T4 1.23 NG/DL (0.89-1.76); VITAMIN B12 LEVEL 501 PG/ML (211-911)
[2024-04-27 14:52] LABS: HEMOGLOBIN A1c 5.2 % (4.0-6.0)
== END ==
LOC: M PLALAB 10:43
PROVIDERS: ATTEND Student in an Organized Health Care Education/Training Program
DX: Z98.84 Bariatric surgery status (principal)

== ENCOUNTER → 2024-05-06 | Outpatient (CLI) | payer OTHER ==
[2024-05-06 11:04] LABS: PHOSPHORUS LEVEL 3.6 MG/DL (2.5-4.9)
[2024-05-06 11:09] LABS: FOLATE 19.3 NG/ML (>5.4); TOTAL 25(OH) VITAMIN D 38.2 NG/ML (20.0-100.0)
== END ==
LOC: M PLALAB 07:53
PROVIDERS: ATTEND Student in an Organized Health Care Education/Training Program
DX: Z98.84 Bariatric surgery status (principal)

== ENCOUNTER → 2024-05-06 | Outpatient (CLI) | payer OTHER | LOC: M PLAIMG 07:47 | PROVIDERS: ATTEND Student in an Organized Health Care Education/Training Program | DX: R01.1 Cardiac murmur, unspecified (principal); I36.1 Nonrheumatic tricuspid (valve) insufficiency ==

== ENCOUNTER → 2024-05-19 | Outpatient (REF) | payer OTHER ==
[2024-05-19 14:50] LABS: Trichomonas vaginalis (AMP) NOT DETECTED (NEGATIVE)
[2024-05-19 15:14] LABS: GC DNA AMPLIFICATION NEGATIVE (NEGATIVE)
[2024-05-21 15:18] LABS: HPV APTIMA Not Detected (Not Detected)
== END ==
LOC: M PLALAB 10:43
PROVIDERS: ATTEND Nurse Practitioner Family
DX: Z12.4 Encounter for screening for malignant neoplasm of cervix (principal); R87.5 Abnormal microbiological findings in specimens from female genital organs

== ENCOUNTER → 2024-05-19 | Outpatient (CLI) | payer OTHER ==
[2024-05-19 15:49] LABS: PROLACTIN 7.07 NG/ML
[2024-05-19 16:00] LABS: HEPATITIS B SURFACE ANTIGEN NEGATIVE (NEGATIVE)
[2024-05-19 16:12] LABS: HIV 1&2 SCREEN NEGATIVE (NEGATIVE)
[2024-05-19 16:21] LABS: HEPATITIS B CORE ANTIBODY IGM NEGATIVE (NEGATIVE); HEPATITIS C VIRUS ABY INDEX 0.02 INDEX (<0.8)
== END ==
LOC: M PLALAB 11:19
PROVIDERS: ATTEND Nurse Practitioner Family
DX: L68.0 Hirsutism (principal); Z80.0 Family history of malignant neoplasm of digestive organs; Z11.3 Encounter for screening for infections with a predominantly sexual mode of transmission

== ENCOUNTER → 2024-09-23 | Outpatient (CLI) | payer OTHER ==
[2024-09-23 11:35] LABS: HEMATOCRIT 40.3 % (36.0-47.0); HEMOGLOBIN 13.4 g/dl (12.0-15.5); MEAN CORPUSCULAR HEMOGLOBIN 28.9 pg (27.0-33.0); MEAN CORPUSCULAR HGB CONC 33.3 g/dl (32.0-36.5); MEAN CORPUSCULAR VOLUME 86.9 fl (80.0-96.0); PLATELET COUNT, AUTOMATED 339 10^3/uL (150-450); RED BLOOD COUNT 4.64 10^6/uL (4.00-5.40); WHITE BLOOD COUNT 7.3 10^3/uL (4.0-10.0)
[2024-09-23 11:54] LABS: BLOOD UREA NITROGEN 13 MG/DL (9-23); CALCIUM LEVEL 9.4 MG/DL (8.5-10.1); CARBON DIOXIDE LEVEL 20 MMOL/L (20-31); CHLORIDE LEVEL 113 MMOL/L (98-107); CREATININE FOR GFR 0.79 MG/DL (0.55-1.30); GLOMERULAR FILTRATION RATE > 60.0 (>60); GLUCOSE, FASTING 88 MG/DL (60-100); SODIUM LEVEL 144 MMOL/L (136-145)
[2024-09-23 11:58] LABS: FERRITIN 73.1 NG/ML (7.3-270.7)
[2024-09-23 12:01] LABS: FOLATE 12.72 NG/ML (>5.4); VITAMIN B12 LEVEL 1006 PG/ML (211-911)
== END ==
LOC: M RAD 09:42
PROVIDERS: ATTEND Physician Assistant
DX: Z98.84 Bariatric surgery status (principal); I10 Essential (primary) hypertension; K91.2 Postsurgical malabsorption, not elsewhere classified; M54.50 Low back pain, unspecified; E66.9 Obesity, unspecified; M47.816 Spondylosis without myelopathy or radiculopathy, lumbar region

== ENCOUNTER → 2025-03-22 | Outpatient (CLI) | payer OTHER ==
[~2025-03-22] MED LIST changes: +TOPI-257 PO; -TOPI100T9 PO
== END ==
LOC: M RAD 10:57
PROVIDERS: ATTEND Student in an Organized Health Care Education/Training Program
DX: M53.3 Sacrococcygeal disorders, not elsewhere classified (principal); R93.7 Abnormal findings on diagnostic imaging of other parts of musculoskeletal system